=== PATIENT | female | born 1970 | race Caucasian/White ===

== ENCOUNTER 2016-12-26 15:41 | Observation (INO) | payer BC ==
[2016-12-26] MEDS ORDERED: Sodium Chloride 0.9% 10 ML Syringe FLUSH PRN (17:25)
[2016-12-26] MEDS ORDERED: Lidocaine 2% Jelly 5 ML Tube TOP PRN (17:25)
[2016-12-26] MEDS ORDERED: Ibuprofen 600 MG Tab PO PRN (17:31)
[2016-12-26] MEDS ORDERED: Acetaminophen/oxyCODONE 325-5 MG Tab PO PRN (17:31)
[2016-12-26] MEDS: Lactated Ringers 1,000 ML IV SCH (18:18)
[2016-12-26] MEDS ORDERED: valACYclovir 1,000 MG Tab PO SCH (21:00)
[2016-12-26] MEDS: valACYclovir 500 MG Tab PO SCH (21:47)
[2016-12-27] MEDS: valACYclovir 500 MG Tab PO SCH (09:25)
[2016-12-27] MEDS: Lactated Ringers 1,000 ML IV SCH (10:12)
--- NOTE | 2016-12-27 13:09 | PCM.DCSUM1 ---
Discharge Summary - Hospital Course Free Text/Narrative:: Patient is admitted yesterday with primary herpes outbreak. She also had mild dehydration and was running fever up to 102. She was started on IV fluids, pushed oral fluids and was resuscitated. She has done well in that department. Her temperatures returned to normal. She is having discomfort but this is decreased from 8 on a scale 10-3 on a scale of 10. Significant amount of discharge from the weeping HSV lesions in the genital area but this is stable. Patient is ready for discharge and feels that she can manage the condition at home. She has been taking Valtrex 1000 mg by mouth twice a day since admission. - Discharge Data Discharge Date: 12/27/16 Discharge Disposition: Home, Self-Care 01 Condition: Good - Patient Instructions Diet: Regular Diet as Tolerated Activity: As Tolerated (No intercourse or tampons until lesions resolve) Driving: May Drive Today Showering/Bathing: May Shower (May take tub baths) Notify Provider of: Fever, Increased Pain, Swelling and Redness, Nausea and/or Vomiting - Discharge Plan Home Medications: Home Meds Multivitamin [Multi-Vitamin Daily] 1 each PO DAILY 12/26/16 [History] Ibuprofen [IJD: Ibuprofen] 600 mg PO Q4H PRN #30 tablet 12/27/16 [Rx] valACYclovir [Valtrex] 1,000 mg PO BID tablet 12/27/16 [Rx] Referrals: Galen Gunter MD [Physician] - [facility] - Discharge Summary/Plan Comment DC Time >30 min.: No Discharge Summary/Plan Comment: Discharge instructions: 1. Discharge home 2. Regular, fiber diet. 3. Medications per home medications point, discussed with them given to the patient. 4. Patient is to call for increased pain, bleeding, inability to void, signs/ symptoms of DVT/PE. 5. Return to clinic Dr. Gunter1 week. Diagnosis: Primary genital herpes infection Condition: Good - Patient Data Vitals - Most Recent: Last Vital Signs Temp 36.6 C 12/27/16 12:56 Pulse 72 12/27/16 12:56 Resp 16 12/27/16 12:56 BP 88/63 L 12/27/16 12:56 Pulse Ox 100 12/27/16 12:56 Weight - Most Recent: 62.686 kg I&O - Last 24 hours: Intake & Output 12/26/16 12/27/16 12/27/16 22:59 06:59 14:59 Intake Total 100 1936 Output Total 1300 Balance 100 636 Lab Results - Last 24 hrs: Laboratory Results - last 24 hr 12/27/16 Range/Units 05:59 WBC 3.88 L (3.98-10.04) K/mm3 RBC 4.05 (3.98-5.22) M/mm3 Hgb 12.6 (11.2-15.7) gm/L Hct 38.2 (34.1-44.9) % MCV 94.3 (79.4-94.8) fl MCH 31.1 (25.6-32.2) pg MCHC 33.0 (32.2-35.5) g/dl RDW Std Deviation 43.3 (36.4-46.3) fL Plt Count 119 L (182-369) K/mm3 MPV 10.8 (9.4-12.3) fl Neut % (Auto) 47.2 (34.0-71.1) % Lymph % (Auto) 38.4 (19.3-51.7) % Ross % (Auto) 10.8 (4.7-12.5) % Eos % (Auto) 2.8 (0.7-5.8) Baso % (Auto) 0.8 (0.1-1.2) % Neut # (Auto) 1.83 (1.56-6.13) K/mm3 Lymph # (Auto) 1.49 (1.18-3.74) K/mm3 Ross # (Auto) 0.42 H (0.24-0.36) K/mm3 Eos # (Auto) 0.11 (0.04-0.36) K/mm3 Baso # (Auto) 0.03 (0.01-0.08) K/mm3 Med Orders - Current: Current Medications Lactated Ringer's (Ringers, Lactated) 1,000 mls @ 125 mls/hr IV ASDIRECTED AMY Last Admin: 12/27/16 10:12 Dose: 125 mls/hr Ibuprofen (Motrin) 600 mg PO Q4H PRN PRN Reason: Mild pain or fever Last Admin: 12/26/16 19:49 Dose: 600 mg Lidocaine HCl (Xylocaine 2% Jelly) 5 ml TOP Q4H PRN PRN Reason: Pain Oxycodone/Acetaminophen (Percocet 325-5 Mg) 2 tab PO Q4H PRN PRN Reason: Pain Sodium Chloride (Saline Flush) 10 ml FLUSH ASDIRECTED PRN PRN Reason: Keep Vein Open Valacyclovir HCl (Valtrex) 1,000 mg PO BID AMY Last Admin: 12/27/16 09:25 Dose: 1,000 mg *Q Meaningful Use (DIS) - VTE *Q VTE Criteria *Q: - Stroke *Q Stroke Criteria *Q: - AMI *Q AMI Criteria *Q:
[2016-12-27 13:16] VITALS: BP 98/63
== END 2016-12-27 14:15 | disposition home or self-care (01) ==
LOC: JD.MS 15:41
PROVIDERS: ADMIT Obstetrics & Gynecology; ATTEND Obstetrics & Gynecology
DX: A60.00 Herpesviral infection of urogenital system, unspecified (principal); E86.0 Dehydration; G43.909 Migraine, unspecified, not intractable, without status migrainosus; N90.89 Other specified noninflammatory disorders of vulva and perineum; Z79.899 Other long term (current) drug therapy; Z90.721 Acquired absence of ovaries, unilateral; Z98.890 Other specified postprocedural states
CPT/HCPCS: 36415; 85025; 96360; 96361; A9270; G0378; J7120

== ENCOUNTER 2021-12-04 19:43 | Emergency (ER) | payer BC ==
[2021-12-04 19:58] VITALS: BP 131/83; PULSE 65
[2021-12-04] MEDS ORDERED: Ketorolac 30 MG/ML SDV IM ONE (20:02)
== END 2021-12-04 22:20 | disposition home or self-care (01) ==
LOC: JD.ED 19:43
DX: S52.122A Displaced fracture of head of left radius, initial encounter for closed fracture (principal); W18.30XA Fall on same level, unspecified, initial encounter
CPT/HCPCS: 29105; 73080; 73110; 96372; 99283; J1885; 99284